=== PATIENT | male | born 1975 | race Caucasian/White ===

== ENCOUNTER 2016-12-02 01:20 | Emergency (ER) | payer MEDICARE, OTHER ==
[~2016-12-02] VITALS: Ht 175.3 cm; Wt 94.9 kg
[~2016-12-02 01:20] MED LIST: CLON-365 PO; GUAI200T3 PO; LEVO750T26 PO; MAGN64TA9 PO; TEST2.5G5 TP; VALA500T PO
[2016-12-02] MEDS ORDERED: HYDROcodone/APAP 5/325 TABLET PO ONE (02:00)
[2016-12-02] MEDS ORDERED: DOXYCYCLINE 100MG TABLET PO ONE (02:00)
[2016-12-02] MEDS ORDERED: LIDOCAINE 1%, 20ML SQ ONE (02:00)
[2016-12-02] MEDS ORDERED: LIDOCAINE 1%, 20ML ONE (02:04)
[2016-12-02] MEDS ORDERED: HYDROcodone/APAP 5/325 TABLET ONE (02:04)
[2016-12-02 02:29] VITALS: BP 139/103
== END 2016-12-02 02:59 | disposition home or self-care (01) ==
LOC: ED 02:53
DX: J86.9 Pyothorax without fistula (principal); F12.10 Cannabis abuse, uncomplicated; D69.6 Thrombocytopenia, unspecified; Z87.01 Personal history of pneumonia (recurrent)
CPT/HCPCS: 10060; 36415; 85025; 87070; 87077; 87186; 87205

== ENCOUNTER 2017-01-12 01:06 | Inpatient (IN) | payer MEDICARE ==
[~2017-01-12] VITALS: Ht 175.3 cm; Wt 97.6 kg
[2017-01-12] MEDS ORDERED: MORPHINE SULFATE 4 MG/ML, 1ML IVPush PRN (02:00)
[2017-01-12] MEDS ORDERED: SODIUM CHLORIDE FLUSH 10ML SYR IVF ONE (02:00)
[2017-01-12] MEDS ORDERED: SODIUM CHLORIDE 0.9% 1,000ML IVBOLUS ONE (02:00)
[2017-01-12] MEDS ORDERED: ONDANSETRON 2MG/ML, 2ML IVPush ONE (02:00)
[2017-01-12] MEDS ORDERED: ONDANSETRON 2MG/ML, 2ML ONE (02:28)
[2017-01-12] MEDS ORDERED: MORPHINE SULFATE 4 MG/ML, 1ML ONE (02:28)
[2017-01-12 02:30] LABS: ASPARTATE AMINO TRANSFERASE 33 U/L (15-37); BLOOD UREA NITROGEN 34 mg/dL (7-18)
[2017-01-12 03:49] LABS: RAPID INFLUENZA A Negative (Negative); RAPID INFLUENZA B Negative (Negative)
[2017-01-12] MEDS ORDERED: PRAV40TA2 PO (04:22)
[2017-01-12] MEDS ORDERED: VANCOMYCIN PER PHARMACY MC ONE (04:30)
[2017-01-12] MEDS ORDERED: PIPERACILLIN/TAZO/PMX 4.5GM 100 ML IVPB ONE (04:30)
[2017-01-12] MEDS ORDERED: PIPERACILLIN/TAZO/PMX 3.375GM 50 ML ONE (04:35)
[2017-01-12] MEDS ORDERED: VANCOMYCIN 1,500 MG in SODIUM CHLORIDE 0.9% 250 ML IV ONE (05:00)
[2017-01-12] MEDS ORDERED: PIPERACILLIN/TAZO/PMX 3.375GM 50 ML IV SCH (05:00)
[2017-01-12] MEDS ORDERED: BISACODYL 10 MG SUPP PR PRN (05:30)
[2017-01-12] MEDS ORDERED: hydrALAzine 20 MG/ML, 1ML IVPush PRN (05:30)
[2017-01-12] MEDS ORDERED: ONDANSETRON ODT 4 MG PO PRN (05:30)
[2017-01-12] MEDS ORDERED: DOCUSATE 100 MG CAPSULE PO PRN (05:30)
[2017-01-12] MEDS ORDERED: ACETAMINOPHEN 325 MG TABLET PO PRN (05:30)
[2017-01-12] MEDS ORDERED: POLYETHYLENE GLYCOL 17 GM PACKET PO PRN (05:30)
[2017-01-12] MEDS: SODIUM CHLORIDE 0.9% 1,000 ML IV SCH ×2 (05:48→18:29)
[2017-01-12 06:00] VITALS: BP 118/85
[2017-01-12 06:47] LABS: HIV 1&2 ANTIBODY SCREEN Nonreactive (Nonreactive); HIV-1 p24 ANTIGEN Nonreactive (Nonreactive)
[2017-01-12 07:19] VITALS: BP 116/67
[2017-01-12 08:30] LABS: HEPATITIS C VIRUS ANTIBODY Nonreactive (Nonreactive)
[2017-01-12] MEDS: HEPARIN 5,000 UNITS/ML, 1ML SQ SCH ×3 (09:00→20:29)
[2017-01-12 13:55] VITALS: BP 110/69
[2017-01-12 19:42] VITALS: BP 123/73
[2017-01-12] MEDS ORDERED: PHARMACOKINETIC CONSULTATION MC ONE (20:00)
[2017-01-12] MEDS ORDERED: PIPERACILLIN/TAZO 3.375 GM in SODIUM CHLORIDE 0.9% 50 ML IV SCH (20:00)
[2017-01-12] MEDS ORDERED: PHARMACOKINETIC MONITORING MC PRN (20:00)
[2017-01-12] MEDS: PRAVASTATIN 40 MG TABLET PO SCH (20:07)
[2017-01-12] MEDS ORDERED: VANCOMYCIN 1,900 MG in SODIUM CHLORIDE 0.9% 250 ML IV SCH (20:30)
[2017-01-13] MEDS: SODIUM CHLORIDE 0.9% 1,000 ML IV SCH ×4 (00:16→20:09)
[2017-01-13 00:44] VITALS: BP 118/77
[2017-01-13] MEDS ORDERED: VANCOMYCIN 1,900 MG in SODIUM CHLORIDE 0.9% 250 ML IV SCH (01:00)
[2017-01-13] MEDS ORDERED: PIPERACILLIN/TAZO/PMX 3.375GM 50 ML IV SCH (02:00)
[2017-01-13] MEDS ORDERED: VANCOMYCIN PER PHARMACY MC PRN (06:00)
[2017-01-13 06:17] LABS: DIFF TOTAL CELLS COUNTED 100 CELL DIFF
[2017-01-13 06:33] LABS: ASPARTATE AMINO TRANSFERASE 28 U/L (15-37); BLOOD UREA NITROGEN 28 mg/dL (7-18)
[2017-01-13 06:38] LABS: VERIFY COUNTS? YES
[2017-01-13 06:53] VITALS: BP 120/82
[2017-01-13] MEDS ORDERED: PIPERACILLIN/TAZO 2.25 GM in SODIUM CHLORIDE 0.9% 50 ML IV SCH (07:30)
[2017-01-13] MEDS: HEPARIN 5,000 UNITS/ML, 1ML SQ SCH ×2 (09:00→16:52)
[2017-01-13] MEDS: AMPICILLIN/SULBACTAM 3 GM in SODIUM CHLORIDE 0.9% 100 ML IV SCH ×3 (12:26→23:20)
[2017-01-13 13:52] VITALS: BP 122/80
[2017-01-13 19:14] VITALS: BP 125/80
[2017-01-13] MEDS: PRAVASTATIN 40 MG TABLET PO SCH (20:08)
[2017-01-14] MEDS: HEPARIN 5,000 UNITS/ML, 1ML SQ SCH ×4 (00:43→22:39)
[2017-01-14 01:59] VITALS: BP 133/87
[2017-01-14] MEDS: AMPICILLIN/SULBACTAM 3 GM in SODIUM CHLORIDE 0.9% 100 ML IV SCH ×4 (04:51→22:35)
[2017-01-14] MEDS: SODIUM CHLORIDE 0.9% 1,000 ML IV SCH ×4 (04:51→22:39)
[2017-01-14 05:29] LABS: ASPARTATE AMINO TRANSFERASE 31 U/L (15-37); BLOOD UREA NITROGEN 30 mg/dL (7-18)
[2017-01-14 06:21] LABS: DIFF TOTAL CELLS COUNTED 100 CELL DIFF
[2017-01-14 06:24] LABS: VERIFY COUNTS? YES
[2017-01-14 06:25] LABS: ANISOCYTOSIS 1+; POLYCHROMASIA 1+
[2017-01-14 07:18] VITALS: BP 131/90
[2017-01-14] MEDS: CEFTRIAXONE PMX 2GM/50ML 50 ML IV SCH (10:00)
[2017-01-14] MEDS ORDERED: CEFTRIAXONE 2 GM in SODIUM CHLORIDE 0.9% 50 ML IV SCH (10:00)
[2017-01-14 11:10] LABS: DIFF TOTAL CELLS COUNTED 100 CELL DIFF
[2017-01-14 11:13] LABS: ANISOCYTOSIS 1+; POLYCHROMASIA 1+; VERIFY COUNTS? YES
[2017-01-14 14:06] LABS: IMMUNOGLOBULIN A <5 mg/dL (90-386); IMMUNOGLOBULIN G <30 mg/dL (700-1600); IMMUNOGLOBULIN M <5 mg/dL (20-172)
[2017-01-14 15:03] VITALS: BP 156/104
[2017-01-14 16:43] VITALS: BP 132/100
[2017-01-14] MEDS: PRAVASTATIN 40 MG TABLET PO SCH (20:59)
[2017-01-14 21:00] VITALS: BP 150/100
[2017-01-14] MEDS ORDERED: LOPERAMIDE 2 MG CAPSULE PO PRN (22:30)
[2017-01-15 02:00] VITALS: BP 127/80
[2017-01-15] MEDS: SODIUM CHLORIDE 0.9% 1,000 ML IV SCH ×2 (04:38→10:40)
[2017-01-15] MEDS: AMPICILLIN/SULBACTAM 3 GM in SODIUM CHLORIDE 0.9% 100 ML IV SCH ×2 (04:38→11:08)
[2017-01-15 05:31] LABS: BLOOD UREA NITROGEN 25 mg/dL (7-18)
[2017-01-15 05:36] LABS: ASPARTATE AMINO TRANSFERASE 25 U/L (15-37)
[2017-01-15 06:13] LABS: DIFF TOTAL CELLS COUNTED 100 CELL DIFF
[2017-01-15 06:54] LABS: ANISOCYTOSIS 1+; POLYCHROMASIA 1+; VERIFY COUNTS? YES
[2017-01-15 07:30] VITALS: BP 136/91
[2017-01-15] MEDS: HEPARIN 5,000 UNITS/ML, 1ML SQ SCH ×3 (09:00→20:13)
[2017-01-15] MEDS: CEFTRIAXONE PMX 2GM/50ML 50 ML IV SCH ×2 (10:00→17:46)
[2017-01-15] MEDS ORDERED: TBO-FILGRASTIM 480 MCG/0.8 ML SQ ONE (16:30)
[2017-01-15 17:35] VITALS: BP 145/92
[2017-01-15 19:41] VITALS: BP 143/91
[2017-01-15] MEDS: PRAVASTATIN 40 MG TABLET PO SCH (20:13)
[2017-01-16 01:23] VITALS: BP 136/86
[2017-01-16 05:03] LABS: ASPARTATE AMINO TRANSFERASE 19 U/L (15-37); BLOOD UREA NITROGEN 24 mg/dL (7-18)
[2017-01-16] MEDS: HEPARIN 5,000 UNITS/ML, 1ML SQ SCH ×2 (09:00→17:00)
[2017-01-16 09:33] VITALS: BP 125/81
[2017-01-16] MEDS ORDERED: IMMUNE GLOBULIN IV ONE (10:30)
[2017-01-16 16:24] VITALS: BP 123/80
[2017-01-16] MEDS: CEFTRIAXONE PMX 2GM/50ML 50 ML IV SCH (18:00)
[2017-01-16 19:08] VITALS: BP 142/94
== END 2017-01-16 19:32 | disposition home or self-care (01) | DRG 872 ==
LOC: ED 03:30 → EDIP 04:25 → 3NW 05:36
PROVIDERS: ADMIT Internal Medicine; ATTEND Internal Medicine
PROC: 02HV33Z Insertion of Infusion Device into Superior Vena Cava, Percutaneous Approach (ICD-10-PCS; principal; 2017-01-16)
PROC: B548ZZA Ultrasonography of Superior Vena Cava, Guidance (ICD-10-PCS; 2017-01-16)
DX: A40.3 Sepsis due to Streptococcus pneumoniae (principal); Z94.81 Bone marrow transplant status; Z94.84 Stem cells transplant status; D61.818 Other pancytopenia; D89.813 Graft-versus-host disease, unspecified; C92.00 Acute myeloblastic leukemia, not having achieved remission; E27.40 Unspecified adrenocortical insufficiency; B44.1 Other pulmonary aspergillosis; N18.3 Chronic kidney disease, stage 3 (moderate); D46.9 Myelodysplastic syndrome, unspecified; R16.1 Splenomegaly, not elsewhere classified; N20.0 Calculus of kidney; I51.7 Cardiomegaly; G62.9 Polyneuropathy, unspecified; H90.42 Sensorineural hearing loss, unilateral, left ear, with unrestricted hearing on the contralateral side; R74.0 Nonspecific elevation of levels of transaminase and lactic acid dehydrogenase [LDH]; F41.1 Generalized anxiety disorder; F43.10 Post-traumatic stress disorder, unspecified; E29.1 Testicular hypofunction; R91.1 Solitary pulmonary nodule; Z80.8 Family history of malignant neoplasm of other organs or systems; Z80.0 Family history of malignant neoplasm of digestive organs; Z72.89 Other problems related to lifestyle; Z90.49 Acquired absence of other specified parts of digestive tract; Z88.8 Allergy status to other drugs, medicaments and biological substances
CPT/HCPCS: 36415; 36569; 71020; 74176; 76700; 76937; 77001; 80053; 80074; 81003; 82784; 83605; 84145; 84439; 84443; 85025; 85610; 85730; 86308; 86703; 87040; 87077; 87181; 87324; 87400; 87899; 93005; 93306; 96374; 96375; J0295; J0696; J1459; J2405; J2543; J3370; C1751; G0435; J1447; J7030; J7050